=== PATIENT | female | born 1970 | race Caucasian/White ===

== ENCOUNTER 2023-12-19 00:05 | Day surgery (SDC) | payer BC, SELFPAY ==
[2023-12-18 17:51] VITALS: BMI 31.1
--- NOTE | 2023-12-18 17:56 | PC.NURSE ---
Report to the Outpatient Waiting Room, entrance under the green pavilion located off [facility], at time _1230 on date 12/19/23 . Planned Procedure Time: _1430 . Time changes happen often and if your time is changed the preop area will call you the afternoon before. - You and your visitor will be asked to self-screen and do not enter if you have any COVID symptoms. - A mask is optional within the hospital at this time. Patients may have clear liquids (water, carbonated beverages, clear teas, apple juice) until 3 hours prior to surgery with a maximum of 20 ounces. - No food from midnight until time of surgery - Infants may have breast milk until 4 hours before surgery, infant formula 6 hours prior to surgery. - Children will be allowed to drink immediately following surgery. If applicable, please bring a bottle or sippy cup to assist with drinking. Juice, water, soda, and popsicles are readily available. For infants on formula, please bring formula the day of surgery. Pacifiers are allowed. Take the following medications with a SIP of water the morning of surgery: _Lexapro and amlodipine DO NOT STOP ANY OF YOUR OTHER PRESCRIPTION MEDICATIONS PRIOR TO SURGERY ?EXCEPT THE FOLLOWING Medications to discontinue per physician ____Vitamins and supplements Date to take last dose___Stop Now Please no make-up, nail macedonian, hairspray, perfume, deodorant, or body powder the day of surgery. No jewelry (including any body piercings) or valuables the day of surgery, leave them at home. Please take a shower or bath the night before, or the morning of, surgery with an antibacterial soap. Wear comfortable, loose fitting clothing. Children are encouraged to wear pajamas. - Jewelry must be removed prior to entering the operating room. Rings and piercings that are not removed may be cut off. - The hospital will not accept responsibility for valuables. - Please leave all valuables, including medications, at home the day of surgery. If you are going home after surgery, a licensed refrigerated national truck driver must drive you home. - NO public transportation without another adult if you receive anesthesia. - We recommend that an adult stay with you for 24 hours following discharge. - We also recommend that you do not drive, make important decision, drink alcoholic beverages, or take any drugs that were not prescribed by your health care provider for at least 24 hours after your discharge time. For Pediatric surgeries, we recommend two adults accompany the child home. Follow any additional instructions given to you from your surgeon. If you or anyone in your household have experienced Covid symptoms in the past week, please notify your surgeon or the nurse liaison at the phone number below for possible testing. Telephone instructions given to _Jimmie and asked if any additional questions and then verbalized understanding. Patient advised to call surgeon office or pre surgery nurse liaison [phone] if any additional questions.
[2023-12-19] VITALS (7 sets, daily range): BP systolic 93–149; BP diastolic 54–92; PULSE 65–105; RESP 12–20; TEMP 36.3–36.6; O2SAT 100
--- NOTE | 2023-12-19 10:54 | WPDHPUPDATE1 ---
History and Physical Update Update Date/Time: 12/19/23 10:54 History and Physical has been reviewed, including an updated exam of the patient. There are NO changes in the patient's condition. Risks, benefits, and alternatives have been discussed and questions answered. Patient agrees to proceed with procedure.
--- NOTE | 2023-12-19 12:25 | ECG_ITS ---
Test Date: 2023-12-19 13:16:07 Measurements Intervals [place] Rate: 62 P: 44 MA: 170 QRS: 12 QRSD: 85 T: 24 QT: 396 QTc: 402 Interpretive Statements SINUS RHYTHM No previous ECG available for comparison Electronically Signed On 12-20-2023 14:21:28 CDT by Blessing Nicole M.D.
[2023-12-19] MEDS: ACETAMINOPHEN 500 MG TABLET 1000 MG PO (12:50)
[2023-12-19] MEDS: LACTATED RINGERS 1,000 ML 30 ML IV CONT (12:55)
[2023-12-19] MEDS: KETOROLAC 15 MG/ML VIAL (*BKC) IV PUSH (12:58)
--- NOTE | 2023-12-19 13:11 | WPDANESEPPF ---
Anes - Initial Pre Proc Eval Procedure: Operation Date: 12/19/23 14:30 Proposed Procedures p Rectal Exam Under Anesthesia, Excision of Multiple Thrombosed Hemorrhoids - Sailaja Dietrich MD Date/Time: 12/19/23 13:11 Surgeon: Sailaja Dietrich MD Pre Op Diagnosis: thrombosed hemorrhoid Patient Data Age: 53 Gender: F Height: 1.57 m Weight: 76.5 kg Last Vital Signs Temp 97.8 F 12/19/23 12:39 Pulse 65 12/19/23 12:39 Resp 20 12/19/23 12:39 BP 149/61 H 12/19/23 12:39 Pulse Ox 100 12/19/23 12:39 O2 Del Method Room Air 12/19/23 12:39 Allergies Allergy/AdvReac Type Severity Reaction Status Date / Time sertraline AdvReac Intermediate Diarrhea Verified 12/19/23 12:38 Home Medications Medication Instructions Recorded Confirmed Type mecobalamin (vitamin B12) 1,000 2,000 mcg sublingual DAILY 05/05/22 12/19/23 History mcg disintegrating tablet,sublingual cholecalciferol (vitamin D3) 50 50 mcg PO DAILY 03/13/23 12/19/23 History mcg (2,000 unit) capsule semaglutide (weight loss) 0.5 0.5 mg subcut WEEKLY 07/17/23 12/19/23 History mg/0.5 mL subcutaneous pen injector (Wegovy) amlodipine 5 mg tablet 5 mg PO DAILY #90 tabs 09/06/23 12/19/23 Rx escitalopram oxalate 5 mg tablet 5 mg PO DAILY #90 tabs 09/06/23 12/19/23 Rx (Lexapro) lisinopril 40 mg tablet 40 mg PO DAILY #90 tabs 10/18/23 12/19/23 Rx hydrocortisone 2.5 % topical cream 1 applic RECTAL BID PRN 12/18/23 12/19/23 Rx with perineal applicator hemorrhoids #30 grams (Anusol-HC) Patient hx anesthesia problems: none Family hx anesthesia problems: none Results Review: All pre-operative results and documents have been reviewed as part of the pre-operative evaluation. [facility] Past Medical History Medical History Anemia Anxiety Colon polyps GERD (gastroesophageal reflux disease) Greater trochanteric bursitis of both hips Hyperglycemia Hypertension KATHRYN (obstructive sleep apnea) mild Screening mammogram, encounter for Thyroid nodule Vitamin B12 deficiency Surgical History Surgical History History of (10/14/02) History of dilation and curettage 08/21/01 hscope d&c 12/28/11 hscope d&c History of gastric bypass (~10/2016) Gastric sleeve History of robot-assisted laparoscopic hysterectomy (02/08/12) History of unilateral salpingectomy (08/21/01) rt salpingectomy Family History Family History Father Diabetes mellitus Acute myocardial infarction Other Parkinson disease Social History Social History (Updated 12/18/23 @ 15:36 by Sheri Mckeon CMA) Smoking packs per day: 1 Smoking cigarettes per day: 20.0 Years smoked: 20 Smoking pack-years: 20.00 Smoking status: Former smoker Tobacco type: cigarettes Smoking end date: 04/30/14 Alcohol intake: former Alcohol use details: rarely Substance use: never Substance use type: does not use Do You Feel Safe in your Home?: Yes Lack of Transportation: No Lack of Food: Never True Current Housing: I Have Housing Concerned About Future Housing: No Difficulty Paying Gas/Electric Bills: No Difficulty Paying for Meds: No Currently Unemployed: No Education: High School Diploma/GED Difficulty w/ Childcare or Family Care: No Living arrangements: with family Additional living arrangements comments: Occupation/Education: occupation 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
[2023-12-19] MEDS: ceFAZolin 2 GM/D5W 50 ML 2 GM/50 ML BAG IVPB (14:42)
[2023-12-19] MEDS: BUPIVACAINE/EPINEPHRINE 0.5% 50 ML VIAL 10 ML INFILTRATE (14:54)
[2023-12-19] MEDS: LIDOCAINE HCL 2% GEL UROJET 10 ML PKG MUCOUS MEM (14:54)
--- NOTE | 2023-12-19 15:22 | W.PM.PROC2 ---
Procedure Note - Detailed Date of Procedure 12/19/23 Pre-op Diagnosis thrombosed external hemorrhoids x 4 Post-op Diagnosis Same Procedure Performed Exam under anesthesia, excision thrombosed external hemorrhoids x4 Surgeon Sailaja Dietrich MD Anesthesia General and Local Indications 53-year-old female presenting to the office with multiple thrombosed external hemorrhoids Findings thrombosed external hemorrhoids x4 Description of Procedure The patient was taken to the operating room and placed in the modified lithotomy position. After adequate induction of general anesthesia, the patient was prepped and draped in the normal sterile fashion. A time-out was then done to verify the patient's identity, as well as the procedure being performed. Began by doing a bilateral pudendal block. A digital examination was then undertaken. There were noted to be multiple thrombosed external hemorrhoids. I then used a Hill-Elmo anoscope to view the anal canal. There were noted to be no internal hemorrhoids. I then used the hand-held LigaSure device to excise the thrombosed external hemorrhoids. There were noted to be 4 large thrombosed hemorrhoids and these were all subsequently excised. Once excised, care was taken to gain hemostasis. Once all the external hemorrhoids were completely excised, I replaced the anoscope and no other pathology was noted. I then placed piece of Gelfoam covered with lidocaine jelly into the anal canal. Sterile dressings were then placed. The patient tolerated the procedure well and was extubated postoperatively. She will be transferred to the recovery room in stable condition. Estimated Blood Loss 10 Packing Yes Pathology None sent Complications No immediate complications Condition Stable Disposition PACU [facility] Billing Surgery - Charge Forward: Surgery Billing
[2023-12-19] MEDS: oxyCODONE HCL (*CRX) 5 MG TAB IR PO (16:25)
== END 2023-12-19 16:56 | disposition home or self-care (01) ==
PROVIDERS: PCP Physician Assistant Medical; Visit Provider Surgery
PROC: (CPT 46320; principal; 2023-12-19 14:30)
DX: K64.5 Perianal venous thrombosis (principal); I10 Essential (primary) hypertension; D64.9 Anemia, unspecified; F41.9 Anxiety disorder, unspecified; K21.9 Gastro-esophageal reflux disease without esophagitis; R73.9 Hyperglycemia, unspecified; G47.33 Obstructive sleep apnea (adult) (pediatric); E53.8 Deficiency of other specified B group vitamins; E66.9 Obesity, unspecified; Z68.30 Body mass index [BMI] 30.0-30.9, adult; Z79.85 Long-term (current) use of injectable non-insulin antidiabetic drugs; Z98.890 Other specified postprocedural states; Z98.84 Bariatric surgery status; Z87.891 Personal history of nicotine dependence; Z86.010 Personal history of colon polyps; Z82.49 Family history of ischemic heart disease and other diseases of the circulatory system
CPT/HCPCS: 46320 ×4; 88304; 93005; A9270; J0690; J1100; J1885; J2250; J2405; J2704; J3010; J7120